=== PATIENT | female | born 1985 | race African-American/Black ===

== ENCOUNTER 2018-06-20 19:16 | Emergency (ER) | payer MEDICAID | END 2018-06-20 21:33 | disposition left against medical advice (07) | LOC: ER 19:16 | DX: Z53.21 Procedure and treatment not carried out due to patient leaving prior to being seen by health care provider (principal) ==

== ENCOUNTER 2025-03-03 16:09 | Emergency (ER) | payer MEDICAID ==
[~2025-03-03] VITALS: Ht 165.1 cm; Wt 58.0 kg
[2025-03-03 16:11] VITALS: O2SAT 99
[2025-03-03 16:26] VITALS: TEMP 36.9; O2SAT 100
[2025-03-03 17:30] VITALS: BP 128/82; PULSE 71; RESP 16
[2025-03-03] MEDS: KETOROLAC 30MG/ML VIAL IM ONE (17:30)
[2025-03-03 19:28] LABS: CLARITY URINE CLEAR (CLEAR); COLOR URINE YELLOW (YELLOW); PH URINE 6.0 (4.5-8.0); SPECIFIC GRAVITY URINE 1.036 (1.005-1.030)
[2025-03-03 19:29] LABS: GLUCOSE URINE NEGATIVE (NEGATIVE); KETONES URINE TRACE (NEGATIVE); LEUKOCYTE ESTERASE URINE 1+ (NEGATIVE); NITRITE URINE NEGATIVE (NEGATIVE); OCCULT BLOOD URINE NEGATIVE (NEGATIVE); PROTEIN URINE 2+ (NEGATIVE); UROBILINOGEN URINE 1.0 E.U./dL (0.2-1.0)
[2025-03-03 19:31] LABS: BACTERIA URINE 1+; RBC URINE 0-2 /hpf (0-2); SQUAMOUS EPITHELIAL CELL URINE 1+ /lpf (RARE/1+)
[2025-03-03] MEDS ORDERED: CEPH500T MT (19:42)
[2025-03-04] MEDS ORDERED: CEPH500C2 MT (13:35)
[2025-03-04] MEDS ORDERED: HYDR-4001 MT (13:35)
[2025-03-04] MEDS ORDERED: SULF1TAB48 MT (13:48)
== END 2025-03-03 17:45 | disposition home or self-care (01) ==
LOC: ER 16:09
DX: N39.0 Urinary tract infection, site not specified (principal)
CPT/HCPCS: 99283; 81003; 81025; 96372; J1885

== ENCOUNTER 2025-03-04 10:02 | Emergency (ER) | payer MEDICAID ==
[~2025-03-04] VITALS: Ht 172.7 cm; Wt 58.0 kg
[~2025-03-04 10:02] MED LIST: CEPH500T MT
[2025-03-04 10:13] VITALS: O2SAT 94
[2025-03-04] MEDS: TRAMADOL 50MG TABLET PO ONE (12:00)
[2025-03-04 12:36] LABS: CLARITY URINE CLEAR (CLEAR); COLOR URINE YELLOW (YELLOW); GLUCOSE URINE NEGATIVE (NEGATIVE); KETONES URINE NEGATIVE (NEGATIVE); LEUKOCYTE ESTERASE URINE 1+ (NEGATIVE); NITRITE URINE NEGATIVE (NEGATIVE); OCCULT BLOOD URINE NEGATIVE (NEGATIVE); PH URINE 6.0 (4.5-8.0); PROTEIN URINE TRACE (NEGATIVE); SPECIFIC GRAVITY URINE 1.025 (1.005-1.030); UROBILINOGEN URINE 1.0 E.U./dL (0.2-1.0)
[2025-03-04 12:49] LABS: BACTERIA URINE 2+; SQUAMOUS EPITHELIAL CELL URINE 3+ /lpf (RARE/1+)
[2025-03-04 12:50] LABS: RBC URINE NONE SEEN /hpf (0-2); WBC URINE 0-2 /hpf (0-2)
[2025-03-04] MEDS: HYDROCODONE/ACETAMINOPHEN 5/325MG TABLET PO ONE (12:59)
[2025-03-04] MEDS ORDERED: CEPH500C2 MT (13:35)
[2025-03-04] MEDS ORDERED: HYDR-4001 MT (13:35)
[2025-03-04 13:40] VITALS: BP 127/88; PULSE 74; RESP 12; TEMP 36.9; O2SAT 98
[2025-03-04] MEDS ORDERED: SULF1TAB48 MT (13:48)
== END 2025-03-04 13:56 | disposition home or self-care (01) ==
LOC: ER 10:32
DX: N12 Tubulo-interstitial nephritis, not specified as acute or chronic (principal); Z87.440 Personal history of urinary (tract) infections
CPT/HCPCS: 81003; 81025; 99283

== ENCOUNTER 2025-03-06 06:34 | Emergency (ER) | payer MEDICAID ==
[~2025-03-06] VITALS: Ht 170.2 cm; Wt 59.1 kg
[~2025-03-06 06:34] MED LIST changes: +HYDR-4001 MT; +SULF1TAB48 MT
[2025-03-06 06:36] VITALS: O2SAT 100
[2025-03-06 08:20] LABS: CLARITY URINE CLEAR (CLEAR); COLOR URINE YELLOW (YELLOW); GLUCOSE URINE NEGATIVE (NEGATIVE); PH URINE 6.0 (4.5-8.0); PROTEIN URINE NEGATIVE (NEGATIVE); SPECIFIC GRAVITY URINE 1.027 (1.005-1.030)
[2025-03-06 08:21] LABS: KETONES URINE NEGATIVE (NEGATIVE); NITRITE URINE NEGATIVE (NEGATIVE); OCCULT BLOOD URINE NEGATIVE (NEGATIVE); UROBILINOGEN URINE 1.0 E.U./dL (0.2-1.0)
[2025-03-06 08:22] LABS: LEUKOCYTE ESTERASE URINE 2+ (NEGATIVE)
[2025-03-06] MEDS: ACETAMINOPHEN 325MG TABLET PO ONE (08:22)
[2025-03-06 08:29] LABS: SQUAMOUS EPITHELIAL CELL URINE 1+ /lpf (RARE/1+)
[2025-03-06 08:30] LABS: BACTERIA URINE 2+; RBC URINE NONE SEEN /hpf (0-2); YEAST URINE NONE SEEN
[2025-03-06] MEDS ORDERED: METH-653 MT (09:14)
[2025-03-06 09:20] VITALS: BP 104/77; PULSE 65; RESP 17; TEMP 36.7; O2SAT 100
[2025-03-07] MEDS ORDERED: CEFP200T14 MT (10:03)
[2025-03-07] MEDS ORDERED: LIDO-53 TP (10:03)
== END 2025-03-06 09:22 | disposition home or self-care (01) ==
LOC: ER 06:34
DX: M25.552 Pain in left hip (principal); M54.50 Low back pain, unspecified; Z87.440 Personal history of urinary (tract) infections
CPT/HCPCS: 81003; 99283

== ENCOUNTER 2025-03-07 07:10 | Emergency (ER) | payer MEDICAID ==
[~2025-03-07] VITALS: Ht 170.2 cm; Wt 60.0 kg
[~2025-03-07 07:10] MED LIST changes: +METH-653 MT
[2025-03-07 07:18] VITALS: O2SAT 98
[2025-03-07] MEDS: SODIUM CHLORIDE 0.9% 1,000 ML IV ONE (08:13)
[2025-03-07] MEDS: ACETAMINOPHEN 500MG TABLET PO ONE (08:13)
[2025-03-07 08:20] LABS: CLARITY URINE CLEAR (CLEAR); COLOR URINE YELLOW (YELLOW); GLUCOSE URINE NEGATIVE (NEGATIVE); KETONES URINE NEGATIVE (NEGATIVE); LEUKOCYTE ESTERASE URINE 1+ (NEGATIVE); NITRITE URINE NEGATIVE (NEGATIVE); OCCULT BLOOD URINE NEGATIVE (NEGATIVE); PH URINE 6.0 (4.5-8.0); PROTEIN URINE NEGATIVE (NEGATIVE); SPECIFIC GRAVITY URINE 1.022 (1.005-1.030); UROBILINOGEN URINE 0.2 E.U./dL (0.2-1.0)
[2025-03-07 08:57] LABS: BASOPHILS % 0.6 % (0.0-2.0); EOSINOPHILS % 0.8 % (0.0-5.0); HEMATOCRIT. 39.4 % (36.0-48.0); HEMOGLOBIN. 12.8 g/dL (12.0-16.0); LYMPHOCYTES % 37.1 % (20.0-50.0); MEAN PLATELET VOLUME 8.6 fl (7.4-10.4); MONOCYTES % 6.6 % (2.0-8.0); NEUTROPHILS % 54.9 % (40.0-76.0); PLATELET 184 x1000/uL (130-400); RED BLOOD CELL COUNT 3.80 mill/uL (4.2-5.4); RED CELL DISTRIBUTION WIDTH 14.1 % (11.6-14.6)
[2025-03-07] MEDS: LIDOCAINE 5% PATCH TOP SCH (09:03)
[2025-03-07 09:07] LABS: SQUAMOUS EPITHELIAL CELL URINE 1+ /lpf (RARE/1+)
[2025-03-07 09:08] LABS: RBC URINE 0-2 /hpf (0-2); WBC URINE 0-2 /hpf (0-2)
[2025-03-07 09:09] LABS: BACTERIA URINE 2+
[2025-03-07 09:13] LABS: CREATININE 0.9 mg/dL (0.6-1.0); UREA NITROGEN BLOOD 6 mg/dL (9-23)
[2025-03-07] MEDS ORDERED: LIDO-53 TP (10:03)
[2025-03-07] MEDS ORDERED: CEFP200T14 MT (10:03)
[2025-03-07 10:12] VITALS: BP 120/81; PULSE 75; RESP 15; TEMP 36.8; O2SAT 99
== END 2025-03-07 10:13 | disposition home or self-care (01) ==
LOC: ER 07:10 → CANBEDREQ 10:00 → ER 10:13
DX: N39.0 Urinary tract infection, site not specified (principal); M54.9 Dorsalgia, unspecified; Z87.440 Personal history of urinary (tract) infections
CPT/HCPCS: 99283; 96360; 96361; 80048; 81003; 81025; 82550; 85025; 87086; 36415; J7030